=== PATIENT | female | born 1975 | race Caucasian/White ===

== ENCOUNTER 2017-03-22 07:04 | Day surgery (SDC) | payer OTHER ==
[~2017-03-22] VITALS: Ht 160 cm; Wt 52.2 kg
[~2017-03-22 07:04] MED LIST: FIORICET 50-301 EACH PO; GABAPENTIN300 MG PO; GINSENG100 MG PO; PEPCID40 MG PO; PREMARIN VAGI42.5 GM VG; PROMETHAZINE HC25 M1 PO; TYLENOL EXTRA500 MG PO; ULTRAM50 MG PO; WOMEN'S DAILY1 EAC4 PO
[2017-03-22 07:37] VITALS: BP 98/55
[2017-03-22] MEDS ORDERED: PERCOCET 5/31 TABLET PO (10:50)
[2017-03-22] MEDS ORDERED: COLACE100 MG PO (10:50)
[2017-03-22] MEDS ORDERED: RECTASMOOTHE30 GM TP (11:32)
[2017-03-22 12:26] VITALS: BP 116/71
[2017-03-22 13:26] VITALS: BP 118/60
== END 2017-03-22 13:40 | disposition home or self-care (01) ==
LOC: SDC 07:04
DX: K64.4 Residual hemorrhoidal skin tags (principal); D04.5 Carcinoma in situ of skin of trunk; Z80.3 Family history of malignant neoplasm of breast; K58.9 Irritable bowel syndrome, unspecified; F17.200 Nicotine dependence, unspecified, uncomplicated; Z82.49 Family history of ischemic heart disease and other diseases of the circulatory system; Z83.79 Family history of other diseases of the digestive system; Z82.61 Family history of arthritis; Z80.49 Family history of malignant neoplasm of other genital organs
CPT/HCPCS: J1885; J2250; J2405; J3010

== ENCOUNTER 2017-03-25 21:02 | Emergency (ER) | payer OTHER ==
[~2017-03-25] VITALS: Ht 157.5 cm; Wt 54.2 kg
[~2017-03-25 21:02] MED LIST changes: +COLACE100 MG PO; +PERCOCET 5/31 TABLET PO; +RECTASMOOTHE30 GM TP
[2017-03-25] MEDS ORDERED: ZOFRAN ODT4 MG PO (22:12)
[2017-03-25 22:42] VITALS: BP 129/76
== END 2017-03-25 22:44 | disposition home or self-care (01) ==
LOC: EME 21:02
DX: G43.909 Migraine, unspecified, not intractable, without status migrainosus (principal); F17.200 Nicotine dependence, unspecified, uncomplicated; Z91.040 Latex allergy status; Z88.1 Allergy status to other antibiotic agents; Z88.2 Allergy status to sulfonamides
CPT/HCPCS: 99281; 99284; J1200; J1885; J2765; J7030

== ENCOUNTER 2017-04-15 09:22 | Day surgery (SDC) | payer OTHER ==
[~2017-04-15] VITALS: Ht 160 cm; Wt 52.2 kg
[~2017-04-15 09:22] MED LIST changes: +ZOFRAN ODT4 MG PO
[2017-04-15 09:56] VITALS: BP 96/62
[2017-04-15] MEDS ORDERED: PERCOCET 5/31 TABLET PO (12:03)
[2017-04-15] MEDS ORDERED: COLACE100 MG PO (12:03)
[2017-04-15 13:20] VITALS: BP 103/56
[2017-04-15 14:30] VITALS: BP 107/56
== END 2017-04-15 14:30 | disposition home or self-care (01) ==
LOC: SDC 09:22
DX: D04.5 Carcinoma in situ of skin of trunk (principal); Z88.2 Allergy status to sulfonamides; F17.200 Nicotine dependence, unspecified, uncomplicated
CPT/HCPCS: 88305; J0690; J1100; J2250; J2405; J3010

== ENCOUNTER 2017-05-13 09:10 | Day surgery (SDC) | payer OTHER ==
[~2017-05-13] VITALS: Ht 157.5 cm; Wt 52.2 kg
[~2017-05-13 09:10] MED LIST changes: +MYRBETRIQ50 MG PO; +PREMARIN0.625 MG PO
[2017-05-13 09:36] VITALS: BP 94/53
[2017-05-13 15:57] VITALS: BP 116/61
[2017-05-13 17:00] VITALS: BP 100/64
[2017-05-13 17:44] VITALS: BP 98/62
== END 2017-05-13 17:49 | disposition home or self-care (01) ==
LOC: SDC 09:10
PROC: 0UBF4ZX Excision of Cul-de-sac, Percutaneous Endoscopic Approach, Diagnostic (ICD-10-PCS; principal; 2017-05-13)
PROC: 0UB54ZZ Excision of Right Fallopian Tube, Percutaneous Endoscopic Approach (ICD-10-PCS; principal; 2017-05-13)
PROC: 0UB04ZZ Excision of Right Ovary, Percutaneous Endoscopic Approach (ICD-10-PCS; principal; 2017-05-13)
PROC: 0DTJ4ZZ Resection of Appendix, Percutaneous Endoscopic Approach (ICD-10-PCS; 2017-05-13)
DX: N94.10 Unspecified dyspareunia (principal); G89.29 Other chronic pain; R10.31 Right lower quadrant pain; N83.202 Unspecified ovarian cyst, left side; N83.8 Other noninflammatory disorders of ovary, fallopian tube and broad ligament; N80.3 Endometriosis of pelvic peritoneum; K58.9 Irritable bowel syndrome, unspecified; G43.909 Migraine, unspecified, not intractable, without status migrainosus; Z85.828 Personal history of other malignant neoplasm of skin; Z90.49 Acquired absence of other specified parts of digestive tract; Z90.710 Acquired absence of both cervix and uterus; Z98.51 Tubal ligation status; F17.200 Nicotine dependence, unspecified, uncomplicated; Z82.49 Family history of ischemic heart disease and other diseases of the circulatory system; Z80.3 Family history of malignant neoplasm of breast; Z82.61 Family history of arthritis; Z83.79 Family history of other diseases of the digestive system; Z80.49 Family history of malignant neoplasm of other genital organs; Z88.1 Allergy status to other antibiotic agents; Z91.040 Latex allergy status
CPT/HCPCS: 88302; 88305; J0690; J1100; J1170; J1885; J2250; J2405; J2550; J3010